=== PATIENT | male | born 1975 | race Caucasian/White ===

== ENCOUNTER 2020-10-25 10:28 | Outpatient (RCR) | payer OTHER, SELFPAY ==
--- NOTE | ~2020-10-25 | XR_ITS ---
EXAMINATION: XR FOOT, RIGHT CLINICAL INFORMATION: Wound right fifth toe. COMPARISON: None TECHNIQUE: 3 views of the right foot. FINDINGS: There is a bandage over the fifth toe. This makes assessing for foreign body limited. There is no bone abnormality. No fracture, dislocation or bone destruction. No abnormal periosteal reaction. There is a benign cystic lesion in the distal phalanges of the great toe at the medial side of the IP joint with subchondral bone consistent with a benign geode. XR/XR foot RT min 3V IMPRESSION: Bandage over the fifth toe. No acute abnormality of the fifth toe.
[2020-10-25 14:16] LABS: MANUAL DIFF FLAG NO
[2020-10-25 14:28] LABS: Estimated Average Glucose 123 mg/dL; Hemoglobin A1c % 5.9 %
[2020-10-25 14:29] LABS: Basophils Percent Auto 0.1 % (0-2); Eosinophils Absolute Auto 0.2 X10*3/uL (0.0-0.4); Eosinophils Percent Auto 3.2 % (0-4); Hematocrit 43.3 % (42-52); Hemoglobin 14.6 g/dl (14.0-18.0); Imm Gran Abs Auto 0.04 X10*3/uL (0.00-0.03); Imm Gran Pct Auto 0.5 % (0.0-0.4); Lymphocytes Absolute Auto 2.2 X10*3/uL (1.2-4.9); Mean Corpuscular HGB Conc 33.7 g/dl (31.0-36.0); Mean Platelet Volume 10.2 fL (9.4-12.4); Monocytes Absolute Auto 0.7 X10*3/uL (0.1-1.2); Monocytes Percent Auto 9.5 % (2-11); Neutrophils Absolute Auto 4.3 X10*3/uL (2.0-8.3); Neutrophils Percent Auto 57.7 % (45-73); Platelet Count 200 X10*3/uL (160-400); Red Blood Count 4.42 X10*6/uL (4.60-5.80); Red Cell Distribution Width 12.1 % (11.0-16.0); White Blood Count 7.5 X10*3/uL (4.8-10.8)
[2020-10-25 14:37] LABS: Anion Gap 12 (12-20); Blood Urea Nitrogen 11 mg/dL (9-16); C Reactive Protein 0.81 mg/dL (< or = 0.50); Calcium 9.2 mg/dL (8.4-10.2); Carbon Dioxide 29 mmol/L (22-29); Chloride 106 mmol/L (96-108); Estimated Glomerular Filt Rate > 60; Glucose Random 145 mg/dL (60-115); Potassium 4.5 mmol/L (3.3-5.1); Sodium 142 mmol/L (135-145)
[2020-10-25 15:14] LABS: Erythrocyte Sedimentation Rate 10 MM/HR (0-15)
== END 2020-11-17 15:36 | disposition home or self-care (01) ==
LOC: HO.WCC 10:28
PROVIDERS: PCP Family Medicine; Visit Provider Physician Assistant
DX: L97.512 Non-pressure chronic ulcer of other part of right foot with fat layer exposed (principal); I73.9 Peripheral vascular disease, unspecified; I87.2 Venous insufficiency (chronic) (peripheral); F12.90 Cannabis use, unspecified, uncomplicated
CPT/HCPCS: 36415; 73630; 80048; 83036; 84134; 85025; 85652; 86140; 97597; 99212